=== PATIENT | female | born 1985 | race Hispanic/Latino ===

== ENCOUNTER 2016-04-22 13:34 | Day surgery (SDC) | payer SELFPAY ==
[2016-04-22 08:45] LABS: Alanine Aminotransferase 18 units/L (7-56); Albumin 3.3 g/dL (3.9-5); Albumin/Globulin Ratio 0.9 %; Alkaline Phosphatase 83 units/L (35-129); Anion Gap 20 mmol/L; BUN/Creatinine Ratio 16.25; Bilirubin,Total 0.4 mg/dL (0.1-1.2); Blood Urea Nitrogen 13 mg/dL (7-17); Calcium 8.7 mg/dL (8.4-10.2); Carbon Dioxide 15 mmol/L (22-30); Glucose 196 mg/dL (65-100); Lipase 17 units/L (13-60); Sodium 133 mmol/L (137-145)
[2016-04-22 09:15] LABS: Basophils % (Auto) 0.3 % (0.0-1.8); Eosinophils % (Auto) 0.8 % (0.0-4.3); Hematocrit 36.5 % (30.3-42.9); Hemoglobin 11.5 gm/dl (10.1-14.3); Mean Corpuscular HGB Conc 31 % (30-34); Mean Corpuscular Volume 79 fl (79-97); Platelet Count 335 K/mm3 (140-440); Red Blood Count 4.64 M/mm3 (3.65-5.03); Red Cell Distribution Width 19.9 % (13.2-15.2); White Blood Count 14.4 K/mm3 (4.5-11.0)
[2016-04-22 09:19] LABS: Mean Corpuscular Hemoglobin 25 pg (28-32)
--- NOTE | 2016-04-22 10:32 | Emergency Department Report ---
ED Abdominal Pain HPI - General Chief Complaint: Abdominal Pain Stated Complaint: CRAMPING/POSS Time Seen by Provider: 04/22/16 10:19 Source: patient, RN notes reviewed Mode of arrival: Wheelchair Limitations: No Limitations, Physical Limitation - History of Present Illness Initial Comments: This is a 30 y/o female previously unknown to me. She recently moved here from [place]. She reports a history of appendectomy, and endometriosis, diagnosed on microscopic surgery when she was 15. Her last menstrual period was March 29. She presents to the ER complaining of abdominal pain. The abdominal pain is diffuse and all over. It increases with palpation and range of motion. It decreases with rest. Positive nausea. No irritative or obstructive urinary symptoms. Patient thinks she is , but she is not certain. MD Complaint: abdominal pain -: Gradual Location: diffuse Severity: moderate Quality: cramping, aching Consistency: constant Improves With: rest Worsens With: movement Associated Symptoms: nausea, anorexia - Related Data Previous Rx's Medication Instructions Recorded Last Taken Type Ibuprofen [Motrin 600 MG tab] 800 mg PO Q6H PRN #30 tablet 04/22/16 Unknown Rx oxyCODONE /ACETAMINOPHEN [Percocet 1 - 2 tab PO Q4H PRN #30 tablet 04/22/16 Unknown Rx 5/325 mg] Allergies Allergy/AdvReac Type Severity Reaction Status Date / Time No Known Allergies Allergy Verified 04/22/16 10:25 ED Review of Systems ROS: Stated complaint: CRAMPING/POSS Other details as noted in HPI Constitutional: malaise. denies: fever Eyes: denies: eye discharge ENT: denies: epistaxis Respiratory: denies: shortness of breath Cardiovascular: denies: chest pain Gastrointestinal: abdominal pain Genitourinary: denies: urgency Musculoskeletal: back pain Skin: denies: lesions Neurological: weakness ED Past Medical Hx - Past Medical History Previous Medical History?: Yes Additional medical history: Endometriosis - Surgical History Past Surgical History?: Yes Additional Surgical History: "surgery for endometriosis" - Social History Smoking Status: Current Every Day Smoker - Medications Home Medications: Home Medications Medication Instructions Recorded Confirmed Last Taken Type Ibuprofen [Motrin 600 MG tab] 800 mg PO Q6H PRN #30 tablet 04/22/16 Unknown Rx oxyCODONE /ACETAMINOPHEN [Percocet 1 - 2 tab PO Q4H PRN #30 tablet 04/22/16 Unknown Rx 5/325 mg] ED Physical Exam - General Limitations: Physical Limitation General appearance: alert, in distress - Head Head exam: Present: atraumatic, normocephalic - Eye Eye exam: Present: normal appearance, EOMI. Absent: nystagmus - ENT ENT exam: Present: normal exam, normal orophraynx, mucous membranes moist - Neck Neck exam: Present: normal inspection, full ROM. Absent: tenderness, meningismus - Respiratory Respiratory exam: Present: normal lung sounds bilaterally. Absent: respiratory distress, wheezes, rales, rhonchi, stridor, chest wall tenderness - Cardiovascular Cardiovascular Exam: Present: normal rhythm, tachycardia, normal heart sounds. Absent: systolic murmur, diastolic murmur, rubs, gallop - GI/Abdominal GI/Abdominal exam: Present: soft, tenderness, guarding, normal bowel sounds. Absent: distended - Extremities Exam Extremities exam: Present: normal inspection, full ROM, normal capillary refill. Absent: tenderness, pedal edema, joint swelling, calf tenderness - Back Exam Back exam: Present: normal inspection, full ROM. Absent: tenderness, CVA tenderness (R), CVA tenderness (L), muscle spasm, paraspinal tenderness, vertebral tenderness - Neurological Exam Neurological exam: Present: alert, oriented X3. Absent: motor sensory deficit - Psychiatric Psychiatric exam: Present: anxious - Skin Skin exam: Present: warm, dry, intact, normal color. Absent: rash ED Course Vital Signs 04/22/16 04/22/16 04/22/16 08:03 08:19 08:20 Temperature Pulse Rate 103 H 95 H 96 H Respiratory 22 21 29 H Rate Blood Pressure 93/64 120/95 O2 Sat by Pulse 100 Oximetry 04/22/16 04/22/16 04/22/16 08:25 08:31 08:35 Temperature Pulse Rate 85 89 66 Respiratory 14 17 24 Rate Blood Pressure 120/95 106/77 106/77 O2 Sat by Pulse 99 97 100 Oximetry 04/22/16 04/22/16 04/22/16 08:40 08:45 08:51 Temperature 97.8 F Pulse Rate 85 83 79 Respiratory 20 19 24 Rate Blood Pressure 106/77 110/71 110/71 O2 Sat by Pulse 100 95 100 Oximetry 04/22/16 04/22/16 04/22/16 08:55 09:01 09:05 Temperature Pulse Rate 85 75 72 Respiratory 30 H 19 15 Rate Blood Pressure 106/77 106/77 106/77 O2 Sat by Pulse 100 Oximetry 04/22/16 04/22/16 04/22/16 09:11 09:15 09:21 Temperature Pulse Rate 73 81 81 Respiratory 14 18 20 Rate Blood Pressure 106/77 106/77 106/77 O2 Sat by Pulse Oximetry 04/22/16 04/22/16 04/22/16 09:25 09:31 09:35 Temperature Pulse Rate 85 71 79 Respiratory 23 24 17 Rate Blood Pressure 110/71 110/71 110/71 O2 Sat by Pulse Oximetry 04/22/16 04/22/16 04/22/16 09:41 09:45 09:50 Temperature Pulse Rate 81 81 87 Respiratory 15 14 17 Rate Blood Pressure 110/71 110/71 86/45 O2 Sat by Pulse 79 L Oximetry 04/22/16 04/22/16 04/22/16 09:55 10:00 10:05 Temperature Pulse Rate 78 75 79 Respiratory 15 17 17 Rate Blood Pressure 83/50 93/65 99/66 O2 Sat by Pulse 95 96 Oximetry 04/22/16 04/22/16 04/22/16 10:11 10:15 10:21 Temperature Pulse Rate 74 79 Respiratory 28 H 21 22 Rate Blood Pressure 99/66 99/66 99/66 O2 Sat by Pulse 99 90 Oximetry 04/22/16 04/22/16 04/22/16 10:25 10:31 10:35 Temperature Pulse Rate 82 95 H 83 Respiratory 26 H 25 H 20 Rate Blood Pressure 99/66 99/66 99/66 O2 Sat by Pulse 79 L Oximetry 04/22/16 04/22/16 04/22/16 10:41 11:39 11:41 Temperature Pulse Rate 87 85 84 Respiratory 14 13 17 Rate Blood Pressure 95/66 107/75 107/75 O2 Sat by Pulse 98 97 Oximetry 04/22/16 04/22/16 04/22/16 11:45 11:51 11:55 Temperature Pulse Rate 90 85 86 Respiratory 24 18 16 Rate Blood Pressure 112/70 95/66 95/66 O2 Sat by Pulse 98 Oximetry 04/22/16 04/22/16 04/22/16 12:00 12:05 12:11 Temperature Pulse Rate 78 90 125 H Respiratory 16 22 13 Rate Blood Pressure 109/71 109/71 109/71 O2 Sat by Pulse 100 97 96 Oximetry 04/22/16 04/22/16 04/22/16 12:15 12:21 12:25 Temperature Pulse Rate 129 H 103 H 104 H Respiratory 17 21 18 Rate Blood Pressure 120/55 120/55 120/55 O2 Sat by Pulse 88 94 97 Oximetry 04/22/16 04/22/16 04/22/16 12:31 12:35 12:41 Temperature Pulse Rate 97 H 86 87 Respiratory 20 27 H 19 Rate Blood Pressure 120/55 120/55 120/55 O2 Sat by Pulse 82 L 94 94 Oximetry 04/22/16 04/22/16 04/22/16 12:45 12:51 12:55 Temperature Pulse Rate 93 H 99 H 95 H Respiratory 22 24 19 Rate Blood Pressure 120/55 120/55 120/55 O2 Sat by Pulse 98 100 Oximetry 04/22/16 04/22/16 04/22/16 14:56 15:00 15:05 Temperature 97.3 F L Pulse Rate 83 84 78 Respiratory 17 18 16 Rate Blood Pressure 113/65 118/77 122/74 O2 Sat by Pulse 100 100 99 Oximetry - Reevaluation(s) Reevaluation #1: 04/22/16 11:47 Differential diagnosis: Urinary tract infection, pyelonephritis, pelvic inflammatory disease, endometriosis, bowel obstruction, , ectopic Assessment and plan: 30-year-old female with diffuse abdominal pain, voluntary guarding, leukocytosis. Borderline hypotensive. Ultrasound demonstrates right- sided tubal ectopic , with her fluid. 2 large-bore IVs are ordered. IV fluids are ordered. Type and screen ordered. Patient was made nothing by mouth. I am currently on hold with [employer] on-call to arrange for emergent transfer to the operating room. Reevaluation #2: 04/22/16 11:51 She is discussed with the sweatband cutting machine operator, Dr. Salazar, who is going to evaluate the patient. Patient's blood pressure currently in the 100s. ED Medical Decision Making - Lab Data Result diagrams: 04/22/16 08:32 04/22/16 08:32 Vital Signs 04/22/16 04/22/16 04/22/16 08:03 08:19 08:20 Temperature Pulse Rate 103 H 95 H 96 H Respiratory 22 21 29 H Rate Blood Pressure 93/64 120/95 O2 Sat by Pulse 100 Oximetry 04/22/16 04/22/16 04/22/16 08:25 08:31 08:35 Temperature Pulse Rate 85 89 66 Respiratory 14 17 24 Rate Blood Pressure 120/95 106/77 106/77 O2 Sat by Pulse 99 97 100 Oximetry 04/22/16 04/22/16 04/22/16 08:40 08:45 08:51 Temperature 97.8 F Pulse Rate 85 83 79 Respiratory 20 19 24 Rate Blood Pressure 106/77 110/71 110/71 O2 Sat by Pulse 100 95 100 Oximetry 04/22/16 04/22/16 04/22/16 08:55 09:01 09:05 Temperature Pulse Rate 85 75 72 Respiratory 30 H 19 15 Rate Blood Pressure 106/77 106/77 106/77 O2 Sat by Pulse 100 Oximetry 04/22/16 04/22/16 04/22/16 09:11 09:15 09:21 Temperature Pulse Rate 73 81 81 Respiratory 14 18 20 Rate Blood Pressure 106/77 106/77 106/77 O2 Sat by Pulse Oximetry 04/22/16 04/22/16 04/22/16 09:25 09:31 09:35 Temperature Pulse Rate 85 71 79 Respiratory 23 24 17 Rate Blood Pressure 110/71 110/71 110/71 O2 Sat by Pulse Oximetry 04/22/16 04/22/16 04/22/16 09:41 09:45 09:50 Temperature Pulse Rate 81 81 87 Respiratory 15 14 17 Rate Blood Pressure 110/71 110/71 86/45 O2 Sat by Pulse 79 L Oximetry 04/22/16 04/22/16 09:55 10:00 Temperature Pulse Rate 78 75 Respiratory 15 17 Rate Blood Pressure 83/50 93/65 O2 Sat by Pulse 95 Oximetry Lab Results 04/22/16 04/22/16 04/22/16 Range/Units 08:32 08:32 09:00 WBC 14.4 H (4.5-11.0) K/mm3 RBC 4.64 (3.65-5.03) M/mm3 Hgb 11.5 (10.1-14.3) gm/dl Hct 36.5 (30.3-42.9) % MCV 79 (79-97) fl MCH 25 L (28-32) pg MCHC 31 (30-34) % RDW 19.9 H (13.2-15.2) % Plt Count 335 (140-440) K/mm3 Lymph % (Auto) 18.1 (13.4-35.0) % Elmore % (Auto) 4.1 (0.0-7.3) % Eos % (Auto) 0.8 (0.0-4.3) % Baso % (Auto) 0.3 (0.0-1.8) % Lymph # 2.6 (1.2-5.4) K/mm3 Elmore # 0.6 (0.0-0.8) K/mm3 Eos # 0.1 (0.0-0.4) K/mm3 Baso # 0.0 (0.0-0.1) K/mm3 Seg Neutrophils % 76.7 H (40.0-70.0) % Seg Neutrophils # 11.0 H (1.8-7.7) K/mm3 Sodium 133 L (137-145) mmol/L Potassium 4.0 (3.6-5.0) mmol/L Chloride 102.0 (98-107) mmol/L Carbon Dioxide 15 L (22-30) mmol/L Anion Gap 20 mmol/L BUN 13 (7-17) mg/dL Creatinine 0.8 (0.7-1.2) mg/dL Estimated GFR > 60 ml/min BUN/Creatinine Ratio 16.25 % Glucose 196 H (65-100) mg/dL Lactic Acid (0.7-2.0) mmol/L Calcium 8.7 (8.4-10.2) mg/dL Total Bilirubin 0.4 (0.1-1.2) mg/dL AST 29 (5-40) units/L ALT 18 (7-56) units/L Alkaline Phosphatase 83 (35-129) units/L Total Protein 7.0 (6.3-8.2) g/dL Albumin 3.3 L (3.9-5) g/dL Albumin/Globulin Ratio 0.9 % Lipase 17 (13-60) units/L Urine HCG, Qual Positive A (Negative) 04/22/16 Range/Units 10:43 WBC (4.5-11.0) K/mm3 RBC (3.65-5.03) M/mm3 Hgb (10.1-14.3) gm/dl Hct (30.3-42.9) % MCV (79-97) fl MCH (28-32) pg MCHC (30-34) % RDW (13.2-15.2) % Plt Count (140-440) K/mm3 Lymph % (Auto) (13.4-35.0) % Elmore % (Auto) (0.0-7.3) % Eos % (Auto) (0.0-4.3) % Baso % (Auto) (0.0-1.8) % Lymph # (1.2-5.4) K/mm3 Elmore # (0.0-0.8) K/mm3 Eos # (0.0-0.4) K/mm3 Baso # (0.0-0.1) K/mm3 Seg Neutrophils % (40.0-70.0) % Seg Neutrophils # (1.8-7.7) K/mm3 Sodium (137-145) mmol/L Potassium (3.6-5.0) mmol/L Chloride (98-107) mmol/L Carbon Dioxide (22-30) mmol/L Anion Gap mmol/L BUN (7-17) mg/dL Creatinine (0.7-1.2) mg/dL Estimated GFR ml/min BUN/Creatinine Ratio % Glucose (65-100) mg/dL Lactic Acid 2.5 H* (0.7-2.0) mmol/L Calcium (8.4-10.2) mg/dL Total Bilirubin (0.1-1.2) mg/dL AST (5-40) units/L ALT (7-56) units/L Alkaline Phosphatase (35-129) units/L Total Protein (6.3-8.2) g/dL Albumin (3.9-5) g/dL Albumin/Globulin Ratio % Lipase (13-60) units/L Urine HCG, Qual (Negative) - Radiology Data Radiology results: report reviewed, image reviewed ultrasound demonstrates right-sided tubal ectopic , moderate free fluid. Critical care attestation.: If time is entered above; I have spent that time in minutes in the direct care of this critically ill patient, excluding procedure time. ED Disposition Clinical Impression: Ectopic Qualifiers: Location of ectopic : tubal Intrauterine status: without intrauterine Qualified Code(s): O00.10 - Tubal without intrauterine Disposition: OP ADMITTED IP TO THIS HOSP Is pt being admited?: Yes Does the pt Need Aspirin: No Condition: Good
--- NOTE | 2016-04-22 11:53 | Ultrasound Report ---
ULTRASOUND OB LESS THAN 14 WEEKS ULTRASOUND OB TRANSVAGINAL HISTORY: Abdominal and pelvic pain. TECHNIQUE: Transabdominal and transvaginal imaging. FINDINGS: The uterus measures 9 x 4 x 6 cm. No uterine fibroid disease. The endometrial stripe is unremarkable measuring 9 mm. No intrauterine . The right ovary is unremarkable measuring 4.0 x 2.3 x 2.6 cm. The left ovary is enlarged and complex measuring 6 x 4 x 3 cm. There appears to be a gestational sac containing a pole and heart rate adjacent to the left ovary or just within the distal fallopian tubule. Heart rate measures 145 beats per minute. There is moderate complex pelvic fluid. IMPRESSION: Left ectopic . Moderate free fluid. These findings were discussed with Dr. Swan in the emergency department at 1138 hrs.
--- NOTE | 2016-04-22 12:08 | Admit Criteria Form ---
Admission Criteria Documentation: OBSTETRIC AND GYNECOLOGIC DISEASE GRG Clinical Indications for Admission to Inpatient Care (Place 'X' for any and all applicable criteria): Hospital admission is needed for appropriate care of the patient because of ANY ONE of the following (1)(2)(3): [ X]I. Hemodynamic instability, as indicated by ALL of the following (1)(2)(3) (4)(5): [X ]a) Vital signs or other findings not as expected for chronic patient condition or baseline [X ]b) Instability indicated by ANY ONE of the following: [X ]i) Hypotension [ ]ii) Symptomatic tachycardia unresponsive to treatment (eg, analgesia, fluids, sedation as indicated) [X ]iii) Inadequate perfusion indicated by ANY ONE of the following: [ X]A. Lactic acidosis (greater than 2 mmol /L) [ ]B. New abnormal capillary refill ( greater than 3 seconds) [ ]C. Reduced urine output [ ]D. New altered mental status [ ]iv) Orthostatic vital sign changes unresponsive to treatment (eg, fluids) [ ]v) Multiple IV fluid boluses required to maintain adequate blood pressure or perfusion [ ]vi) IV inotropic or vasopressor medication required to maintain adequate blood pressure or perfusion [ ]II. Obstetric infection requiring hospitalization indicated by ANY ONE of the following(13)(14): [ ]a) Chorioamnionitis [ ]b) Endometritis (except mild endometritis) [ ]c) Pelvic abscess [ ]d) Peritonitis [ ]e) Septic pelvic thrombophlebitis [ ]III. Amniotic fluid or pulmonary embolism(4)(5)(6) [X ]IV. Suspected peritonitis or ectopic requiring monitoring beyond scope of 24 hours or observation care(7)(8) [ ]V. compromise requiring hospitalization indicated by ALL of the following(9)(10): [ ]a) compromise indicated by ANY ONE of the following(11): [ ]i) Abnormal heart rate monitoring [ ]ii) Abnormal contraction stress test [ ]iii) Abnormal biophysical profile [ ]iv) Abnormal Doppler flow in vessels (ie, Doppler velocimetry) (12) [ ]b) Persistence of compromise indicators during evaluation and observation monitoring [ ]. Ovarian hyperstimulation syndrome requiring hospitalization[A] indicated by ALL of the following(15): [ ]a) Recent ovarian stimulation with gonadotropins, or evidence on ultrasound of spontaneous emergence of large number of ovarian follicles [ ]b) Evidence of severe ovarian hyperstimulation syndrome indicated by ANY ONE of the following: [ ]i) Abdominal pain unresponsive to oral therapy [ ]ii) Acute respiratory distress syndrome [ ]iii) Electrolyte imbalance ( eg, hyponatremia, hyperkalemia) [ ]iv) Elevated liver enzymes [ ]v) Evidence of thromboembolism [ ]vi) Hemoconcentration (hematocrit greater than 45 % (0.45)) [ ]vii) Inability to maintain oral intake adequate to prevent hemoconcentration [ ]viii) Marked hypotension from baseline (eg, SBP 20 mmHg below patients usual pressure) [ ]ix) Oliguria or anuria [ ]x) Ovarian torsion [ ]xi) Pleural or pericardial effusion on x-ray or echocardiogram [ ]xii) Rapid increase in serum creatinine to greater than 1.2 mg/dL (106 micromoles/L) or creatinine clearance less than 50 mL/min/1.73m2 (0.84 mL/ sec/1.73m2) [ ]xiii) Ruptured ovarian cyst with hemorrhage [ ]xiv) Severe abdominal pain or peritoneal signs [ ]xv) Tense ascites that cannot be managed with paracentesis in outpatient setting [ ]VII.Pelvic infection requiring hospitalization indicated by ANY ONE of the following (16): [ ]a) Outpatient treatment has failed or is not appropriate (eg, inpatient monitoring required) [ ]b) Pelvic abscess [ ]c) Surgical emergency cannot be excluded (eg, rigid abdomen) [ ]d) Vomiting precluding outpatient and observation care management VIII. loss complications requiring inpatient medical treatment indicated by ANY ONE of the following (4)(7)(9): [ ]a) Fever [ ]b) Peritonitis [ ]c) Sepsis [ ]d) Severe abdominal pain [ ]IX. or patient requiring monitoring for severe heart failure, pulmonary disease, or other comorbid condition (eg, peripartum cardiomyopathy) (4)(17) [ ]X. patient with rupture of membranes requiring hospitalization indicated by ANY ONE of the following: [ ]a) Chorioamnionitis, cloudy amniotic fluid, or other evidence of infection [ ]b) compromise or other need for monitoring (11) [ ]c) Gestation longer than 23 weeks and ANY ONE of the following: [ ]i) Abnormal (noncephalic) presentation [ ]ii) Inadequate home environment (eg, home too far from hospital, unable to rapidly return to hospital) [ ]d) Temperature greater than 100.4 degrees F (38 degrees C)( oral) [ ]e) Threatened labor requiring monitoring beyond scope (eg, over 24 hours) of observation Care [ ] XI. complications, including severe lacerations, infections, or retained placenta (19) [ ] XII.Uterine bleeding with high-risk features indicated by ANY ONE of the following (4): [ ]a) Active major hemorrhage (eg, hemorrhage) [ ]b) Coagulopathy with active bleeding [ ]c) Gestational trophoblastic disease (eg, molar ) (20 ) [ ]d) (longer than 23 weeks) and ANY ONE of the following: [ ]i) Pain [ ]ii) Placental abruption, known or suspected [ ]iii) Placenta accrete, known or suspected(21) [ ]iv) Placenta previa, known or suspected [ ]v) Vasa previa [ ]e) Severe anemia [ ]XIII. Obstetric or Gynecologic Disease, condition or symptom for which ANY ONE of the following: [ ]a) Emergency and observation care have failed or are not considered appropriate ( Also use General Criteria: Observation Care Criteria as appropriate) [ ]b) Presence of a General Admission Criteria or Pediatric General Admission Criteria The original [facility] content created by [facility] has been revised. The portions of the content which have been revised are identified through the use of italic text or in bold, and [facility] has neither reviewed nor approved the modified material.All other unmodified content is copyright [facility]. Please see references footnoted in the original [facility] edition 2016 Admission Criteria Met: Yes
--- NOTE | 2016-04-22 12:37 | History and Physical Report ---
History of Present Illness Date of examination: 04/22/16 Chief complaint: Severe abdominal pelvic pain History of present illness: Is a 30-year-old white female [id number] whose last menstrual period was 02/27/2016. Patient states that she had a positive home test on 04/10/2016. Patient is traveling this area with a significant other. But morning of admission patient started having severe lower quadrant pain with minimal vaginal bleeding. Patient arrived in the emergency room in severe pain. Patient revealed a ectopic with heartbeat and gestational yolk sac seen and what appears to be intra-abdominal bleeding. Patient has had systolic blood pressures under 100 and with the surgical abdominal exam. Past History Past Medical History: other (endometriosis) Past Surgical History: appendectomy, Other (2 operative laparoscopies for endometriosis at 15yo,. 2006 done with an appendectomy) Social history: smoking (pack per day) Family history: no significant family history Medications and Allergies Allergies Allergy/AdvReac Type Severity Reaction Status Date / Time No Known Allergies Allergy Verified 04/22/16 10:25 Home Medications Medication Instructions Recorded Confirmed Last Taken Type No Known Home Medications [No 04/22/16 04/22/16 Unknown History Reported Home Medications] Active Meds: Active Medications Cefazolin Sodium (Ancef/Sterile Water 2 Gm/20 Ml) 20 mls @ 80 mls/hr IV PREOP NR PRN Reason: Protocol Sodium Chloride (Nacl 0.9% 500 Ml) 2,000 ml IV NOW MARTHA Last Admin: 04/22/16 10:42 Dose: 2,000 ml Review of Systems Constitutional: other (CER assessment) Exam - Constitutional Vitals: Temp Pulse Resp BP Pulse Ox 97.8 F 75 17 93/65 95 04/22/16 08:40 04/22/16 10:00 04/22/16 10:00 04/22/16 10:00 04/22/16 09:55 General appearance: Present: severe distress - Neck Neck: Present: supple - Respiratory Respiratory effort: normal - Cardiovascular Rhythm: regular - Extremities Extremities: no ischemia - Abdominal General gastrointestinal: Present: soft, tender Localized gastrointestinal: tender: diffuse, RUQ, LUQ, RLQ, LLQ, suprapubic, guarding: LUQ, RLQ, LLQ, suprapubic, rebound: RLQ, LLQ, suprapubic Female genitourinary: Present: other (normal external genitalia without bleeding bimanual deferred due to ultrasound findings) - Rectal Rectal Exam: deferred - Integumentary Integumentary: Present: clear, warm - Psychiatric Psychiatric: appropriate mood/affect, intact judgment & insight Results - Labs CBC & Chem 7: 04/22/16 08:32 04/22/16 08:32 Labs: Abnormal lab results 04/22/16 04/22/16 04/22/16 Range/Units 08:32 08:32 09:00 WBC 14.4 H (4.5-11.0) K/mm3 MCH 25 L (28-32) pg RDW 19.9 H (13.2-15.2) % Seg Neutrophils % 76.7 H (40.0-70.0) % Seg Neutrophils # 11.0 H (1.8-7.7) K/mm3 Sodium 133 L (137-145) mmol/L Carbon Dioxide 15 L (22-30) mmol/L Glucose 196 H (65-100) mg/dL Lactic Acid (0.7-2.0) mmol/L Albumin 3.3 L (3.9-5) g/dL Urine HCG, Qual Positive A (Negative) 04/22/16 Range/Units 10:43 WBC (4.5-11.0) K/mm3 MCH (28-32) pg RDW (13.2-15.2) % Seg Neutrophils % (40.0-70.0) % Seg Neutrophils # (1.8-7.7) K/mm3 Sodium (137-145) mmol/L Carbon Dioxide (22-30) mmol/L Glucose (65-100) mg/dL Lactic Acid 2.5 H* (0.7-2.0) mmol/L Albumin (3.9-5) g/dL Urine HCG, Qual (Negative) Assessment and Plan - Patient Problems (1) Ectopic Current Visit: Yes Status: Acute Qualifiers: Location of ectopic : tubal Intrauterine status: without intrauterine Qualified Code(s): O00.10 - Tubal without intrauterine Plan to address problem: Patient was a large ectopic with ultrasound evidence of internal bleeding. Patient also has hypertension and surgical abdomen on exam. Discussed with patient options of medical treatment versus surgical treatment. Discussed risks of ruptured ectopic and significant hemorrhage also the unlikelihood that the methotrexate work with the topic of this size with all already evidence of a bleeding. Patient desired to proceed with operative intervention. Patient admitted with the risks of laparoscopy. Discussed the risks of vomiting infection bleeding possibly heavy enough to require blood transfusion possible to ability to damage bowel or bladder and also the possibility of a laparotomy if unsuccessful with the laparoscopic approach. Did discuss risks of salpingostomy versus salpingectomy patient desires salpingectomy due to history of endometriosis and being multiparious. All patient's questions answered and she desires to proceed. Plan to proceed with operative laparoscopy with salpingectomy and possible laparotomy.
--- NOTE | 2016-04-22 12:50 | Anesthesia Consultation ---
Anesthesia Consult and Med Hx Date of service: 04/22/16 - Airway Anesthetic Teeth Evaluation: Good ROM Head & Neck: Adequate Mental/Hyoid Distance: Inadequate Mallampati Class: Class IV Intubation Access Assessment: Possibly Difficult - Pulmonary Exam CTA: Yes - Cardiac Exam Cardiac Exam: RRR - Pre-Operative Health Status ASA Pre-Surgery Classification: ASA2 Proposed Anesthetic Plan: General - Pulmonary Hx Smoking: Yes - Cardiovascular System Hx Hypertension: No - Central Nervous System Hx Psychiatric Problems: No - Gastrointestinal Hx Gastroesophageal Reflux Disease: No - Endocrine Hx Insulin Dependent Diabetes: No - Hematic Hx Anemia: No Hx Sickle Cell Disease: No - Other Systems Hx Alcohol Use: No Hx Substance Use: No Hx Cancer: No Hx Obesity: No
[2016-04-22 12:52] LABS: Bacteria,Urine 1+ /HPF (Negative); Bilirubin,Urine NEG (Negative); Blood,Urine NEG (Negative); Ketones,Urine NEG (Negative); Leukocyte Esterase,Urine SM (Negative); Mucus,Urine 3+ /HPF; Nitrite,Urine NEG (Negative); Urobilinogen,Urine < 2.0 mg/dL (<2.0)
--- NOTE | 2016-04-22 13:18 | Anesthesia Day of Surgery ---
Anesthesia Day of Surgery - Day of Surgery Patient Examined: Yes Patient H&P Reviewed: Yes Patient is NPO: Yes
[~2016-04-22 13:34] MED LIST: ANCEF/STERILE WATER 2 GM/20 ML 20 ML IV NR; DILAUDID IV ONE; DILAUDID ONE; DIPRIVAN 10 MG/ML IV ONE; LACTATED RINGERS 1,000 ML ONE; MARCAINE 0.5% INFILTRATI ONE; NACL 0.9% 1000 ML 1,000 ML IV ONE; NACL 0.9% 500 ML IV SCH; NACL 0.9% IR ONE; PEPCID IV NR; PEPCID IV ONE; VERSED IV NR; VERSED ONE; XYLOCAINE MPF 2% ONE; ZEMURON IV ONE
[2016-04-22] MEDS ORDERED: NEO SYNEPHRINE/NS Syringe(OR USE) IV ONE (13:50)
[2016-04-22] MEDS ORDERED: ANCEF ONE (13:54)
[2016-04-22] MEDS ORDERED: LACTATED RINGERS 1,000 ML ONE (13:59)
[2016-04-22] MEDS ORDERED: LACTATED RINGERS 1,000 ML IV SCH (14:00)
[2016-04-22] MEDS ORDERED: NACL 0.9% IR ONE (14:19)
[2016-04-22] MEDS ORDERED: TORADOL ONE (14:32)
[2016-04-22] MEDS ORDERED: ROBINUL ONE (14:32)
[2016-04-22] MEDS ORDERED: BLOXIVERZ ONE (14:32)
[2016-04-22] MEDS ORDERED: ZOFRAN ONE (14:32)
--- NOTE | 2016-04-22 15:44 | Operative Report ---
[id number]: Right tubal ectopic Procedure name(s): Operative laparoscopy with left salpingectomy Surgeon: Vahid Salazar MD Wireless Engineer: None Anesthesia: General EBL: Minimal Complications: None Findings: Approximately 200 mL of old clotted blood obvious ectopic left fallopian tube. Specimen(s): Left tube and ectopic Procedure: Patient was brought in the operating room. General anesthesia was induced without difficulty. She was placed in dorsal lithotomy position. Prepped and draped in usual sterile manner. A Crawley cath was placed in urinary bladder HUMI uterine manipulator was then placed without difficulty. Attention was then switched to the patient's abdomen. An infra-umbilical incision was made with a scalpel. This incision was spread with a hemostat. A 5 mm trocar was placed in this incision while lifting high the abdominal wall. Intra-abdominal presence was verified directly with the laparoscope. The patient was then insufflated to approximately 3 L of CO2 gas. The patient's findings as noted above. An accessory puncture a 10 - 12 trocar was made suprapubically. The 10 -12 mm trocar was placed through this incision under direct visualization with no evidence of internal organ damage. An accessory puncture was made in the left lower quadrant. A 5 mm trocar was placed in this incision under direct visualization with no evidence of internal organ damage. A large amount of clotted blood was then suctioned with the suction equipment operator/laborer/supervisor. The salpingectomy was performed by using the bipolar cutting instrument starting at each end of fallopian tube proximally near the cornea along the mesosalpinx until the fimbriated end was reached and the tube was detached from the ovary. Good hemostasis was found along the surgery site. The Endo Catch was then placed in the suprapubic incision and the ectopic was placed in the Endo Catch sack. The specimen was removed through the suprapubic incision incision without difficulty. The trocar was replaced. The pelvis was closely irrigated and found to be hemostatic. Interceed was then placed over the surgery site to prevent future adhesions. The patient was deinsufflated. All instruments were removed. The large incision was closed in layers with 0 Vicryl for the fascia and 4-0 Vicryl subcutaneously. The smaller incisions were closed with 4-0 Vicryl subcutaneously. The patient tolerated procedure well awakened in the operating room and accompanied to the recovery room in good condition.
--- NOTE | 2016-04-22 15:46 | Discharge Summary ---
Short Stay Discharge Plan Activity: advance as tolerated Wound: open to air Additional Instructions: Call office for fever chills nausea vomiting or pain uncontrolled by pain medicine. Follow-up with Dr. Vahid Salazar in 7 days phone number Prescriptions: Ibuprofen [Motrin 600 MG tab] 800 mg PO Q6H PRN #30 tablet PRN Reason: Pain oxyCODONE /ACETAMINOPHEN [Percocet 5/325 mg] 1 - 2 tab PO Q4H PRN #30 tablet PRN Reason: Pain, Moderate
[2016-04-22] MEDS ORDERED: PERCOCET 5/325 PO PRN (17:03)
[2016-04-22 18:53] VITALS: BP 119/79
== END 2016-04-22 18:35 | disposition home or self-care (01) ==
LOC: OR 13:34
PROVIDERS: ATTEND Obstetrics & Gynecology
DX: O00.10 Tubal pregnancy without intrauterine pregnancy (principal); Z3A.01 Less than 8 weeks gestation of pregnancy; F17.210 Nicotine dependence, cigarettes, uncomplicated; Z98.890 Other specified postprocedural states
CPT/HCPCS: 36415; 59151; 76801; 76817; 80053; 81001; 81025; 82140; 83690; 84703; 85025; 86850; 86900; 86901; 88305; A4217; J0690; J1170; J1885; J2250; J2370; J2405; J2704; J2710; J7030; J7120